=== PATIENT | female | born 1975 | race Caucasian/White ===

== ENCOUNTER → 2016-11-24 | Outpatient (CLI) | payer BC ==
[~2016-11-24] MED LIST: LRT5 PO; PREN0.12 PO
== END | disposition home or self-care (01) ==
LOC: C.FOODA 13:31
PROVIDERS: ATTEND Family Medicine
DX: E66.8 Other obesity (principal); Z68.32 Body mass index [BMI] 32.0-32.9, adult

== ENCOUNTER → 2017-02-24 | Outpatient (CLI) | payer BC | END | disposition home or self-care (01) | LOC: C.LAB 09:43 | PROVIDERS: ATTEND Obstetrics & Gynecology | DX: O09.511 Supervision of elderly primigravida, first trimester (principal); Z3A.00 Weeks of gestation of pregnancy not specified ==

== ENCOUNTER → 2017-02-27 | Outpatient (CLI) | payer BC | END | disposition home or self-care (01) | LOC: C.LAB 08:25 | PROVIDERS: ATTEND Obstetrics & Gynecology | DX: O09.511 Supervision of elderly primigravida, first trimester (principal) ==

== ENCOUNTER → 2017-02-28 | Outpatient (CLI) | payer BC ==
[2017-03-06 11:51] LABS: CHLAMYDIA TRACH RNA*** NOT DETECTED (NOT DETECTED); GC (NEIS GONORRHOEAE)RNA** NOT DETECTED (NOT DETECTED)
== END | disposition home or self-care (01) ==
LOC: C.LABSPEC 15:23
PROVIDERS: ATTEND Obstetrics & Gynecology
DX: O09.511 Supervision of elderly primigravida, first trimester (principal)

== ENCOUNTER → 2017-02-28 | Outpatient (CLI) | payer BC | END | disposition home or self-care (01) | LOC: C.PAPS 16:09 | PROVIDERS: ATTEND Obstetrics & Gynecology | DX: O09.511 Supervision of elderly primigravida, first trimester (principal); Z3A.00 Weeks of gestation of pregnancy not specified ==

== ENCOUNTER 2017-04-12 07:01 | Emergency (ER) | payer BC ==
[~2017-04-12] VITALS: Ht 177.8 cm; Wt 99.9 kg
[~2017-04-12 07:01] MED LIST changes: -PREN0.12 PO
[2017-04-12 07:12] VITALS: Ht 177.8 cm; Wt 99.9 kg
[2017-04-12] MEDS ORDERED: SODIUM CHLORIDE 0.9% 1000ML 1,000 ML IV STA (07:31)
--- NOTE | 2017-04-12 07:39 | EMERGENCY ROOM VISIT NOTE ---
History First contact with patient: 07:18 Chief Complaint: ED VAG BLEEDING Stated Complaint: BLEEDING 11WKS History of Present Illness The patient is a 42 year old female who presents to the Emergency Room with complaints of vaginal bleeding. The patient is a female, 11.5 weeks gestation and was told she is having twins. She sees Dr. Nunes. Her last ultrasound was at 8 weeks. Given her age and that this is her first of twin gestation, she is being referred to [facility] and has an appointment on the of this month. She has an appointment with [facility] on Monday. The patient states that this morning around 5 AM she woke with vaginal bleeding. She states she had mild cramping which she rates a 2/10. She denies any other illness. She denies any fevers, chills, earache, sore throat. She denies any cough or trouble breathing. She denies any pain in her chest. She denies any urinary symptoms. Review of Systems A 10 system review of systems was completed with positives and pertinent negatives listed in the HPI. Past Medical/Surgical History Patient denies Social History Smoking Status: Former Smoker Marital Status: Housing Status: lives with family Occupation Status: employed Current/Historical Medications Scheduled Vit W/ Ferrous Fumara (), 1 TAB PO DAILY Allergies Coded Allergies: No Known Allergies (Unverified , 04/12/17) Physical Exam Vital Signs Date Time Temp Pulse Resp B/P (MAP) Pulse Ox O2 Delivery O2 Flow Rate FiO2 04/12/17 11:11 37.0 79 16 132/79 98 04/12/17 11:09 36.9 81 16 134/74 98 04/12/17 11:06 81 16 134/74 98 Room Air 04/12/17 10:02 70 18 135/92 100 Room Air 04/12/17 08:24 64 18 140/87 100 Room Air 04/12/17 07:12 36.6 88 20 135/87 99 Room Air Physical Exam VITALS: Vitals are noted on the nurse's note and reviewed by myself. Vital signs stable. The patient is afebrile. GENERAL: This is a 42-year-old female, in no acute distress, nondiaphoretic, well-developed well-nourished. SKIN: The skin was without rashes, erythema, edema, or bruising. There is no tenting of the skin. Capillary reflex less than 2 seconds. HEAD: Normocephalic atraumatic. EARS: External ears normal in appearance. EYES: Pupils equal round and reactive to light and accommodation. Conjunctivae without injection, sclerae without icterus. Extraocular movements intact. NOSE: Patent, turbinates without inflammation or discharge. MOUTH: Mucous membranes moist. Tonsils are not enlarged. Pharynx without erythema or exudate. Uvula midline. Airway patent. Tongue does not deviate. NECK: Supple without nuchal rigidity. No lymphadenopathy. No thyromegaly. Cervical spine is nontender. No JVD. HEART: Regular rate and rhythm without murmurs gallops or rubs. LUNGS: Clear to auscultation bilaterally without wheezes, rales or rhonchi. No retractions or accessory muscle use. ABDOMEN: Positive bowel sounds x 4. Soft, nontender, without masses or organomegaly. : He is to genitalia is normal in appearance. The cervix is closed. There is scant blood noted in the vaginal canal. There is no cervicitis. There is no cervical motion tenderness. There are no obvious adnexal masses. MUSCULOSKELETAL: No muscle atrophy, erythema, or edema noted. Full range of motion in all extremities.Normal gait. Strength 5/5 throughout. NEURO: Patient was alert and oriented to person place and time. No focal neurological deficits. Medical Decision & Procedures ER Provider Diagnostic Interpretation: <14 WKS TRANSABD ADD CLINICAL HISTORY: 11.5week gestation, twins, vaginal bleeding COMPARISON STUDY: None. FINDINGS: Transabdominal and transvaginal scanning of the pelvis was performed. The cervix measures 4 cm in length. There is trace fluid within the cervical canal. However, the cervix appears closed. There is evidence for a twin with baby A on the right maternal side measuring a crown-rump length of 4.35 cm consistent with an 11 week and 1 day fetus. Baby A demonstrates a heart rate of 155 bpm. Baby B demonstrates a crown-rump length of 4.49 cm consistent with an 11 week and 2 day intrauterine gestation with a heart rate of 166 bpm. There are 2 small hypoechoic areas between the gestational sac of baby A and the cervix which measure 1.8 and 1.7 cm in size. These are consistent with small subchorionic hematomas. IMPRESSION: Viable twin of approximately 11 week and 2 days. There are 2 small hypoechoic areas between the gestational sac of baby A and the cervix consistent with small subchorionic hematomas. These do not result significant mass effect at this time. Laboratory Results 04/12/17 07:45 Red Blood Count 4.82, Mean Corpuscular Volume 87.1, Mean Corpuscular Hemoglobin 29.5, Mean Corpuscular Hemoglobin Concent 33.8, Mean Platelet Volume 10.8, Neutrophils (%) (Auto) 73.2, Lymphocytes (%) (Auto) 20.4, Monocytes (%) (Auto) 5.0, Eosinophils (%) (Auto) 0.9, Basophils (%) (Auto) 0.2, Neutrophils # (Auto) 7.09, Lymphocytes # (Auto) 1.97, Monocytes # (Auto) 0.48, Eosinophils # (Auto) 0.09, Basophils # (Auto) 0.02 04/12/17 07:45 Test 04/12/17 07:41 04/12/17 07:45 Urine Color YELLOW Urine Appearance CLEAR (CLEAR) Urine pH 6.5 (4.5-7.5) Urine Specific [place] 1.012 (1.000-1.030) Urine Protein NEG (NEG) Urine Glucose (UA) NEG (NEG) Urine Ketones NEG (NEG) Urine Occult Blood 2+ (NEG) Urine Nitrite NEG (NEG) Urine Bilirubin NEG (NEG) Urine Urobilinogen NEG (NEG) Urine Leukocyte Esterase NEG (NEG) Urine WBC (Auto) 1-5 /hpf (0-5) Urine RBC (Auto) 0-4 /hpf (0-4) Urine Hyaline Casts (Auto) 0 /lpf (0-5) Urine Epithelial Cells (Auto) 10-20 /lpf (0-5) Urine Bacteria (Auto) NEG (NEG) Urine Mucus PRESENT (NONE PRSENT) White Blood Count 9.68 K/uL (4.8-10.8) Red Blood Count 4.82 M/uL (4.2-5.4) Hemoglobin 14.2 g/dL (12.0-16.0) Hematocrit 42.0 % (37-47) Mean Corpuscular Volume 87.1 fL (80-100) Mean Corpuscular Hemoglobin 29.5 pg (25-34) Mean Corpuscular Hemoglobin Concent 33.8 g/dl (32-36) Platelet Count 257 K/uL (130-400) Mean Platelet Volume 10.8 fL (7.4-10.4) Neutrophils (%) (Auto) 73.2 % Lymphocytes (%) (Auto) 20.4 % Monocytes (%) (Auto) 5.0 % Eosinophils (%) (Auto) 0.9 % Basophils (%) (Auto) 0.2 % Neutrophils # (Auto) 7.09 K/uL (1.4-6.5) Lymphocytes # (Auto) 1.97 K/uL (1.2-3.4) Monocytes # (Auto) 0.48 K/uL (0.11-0.59) Eosinophils # (Auto) 0.09 K/uL (0-0.5) Basophils # (Auto) 0.02 K/uL (0-0.2) RDW Standard Deviation 42.1 fL (36.4-46.3) RDW Coefficient of Variation 13.1 % (11.5-14.5) Immature Granulocyte % (Auto) 0.3 % Immature Granulocyte # (Auto) 0.03 K/uL (0.00-0.02) Anion Gap 10.0 mmol/L (3-11) Est Creatinine Clear Calc Drug Dose 142.8 ml/min Estimated GFR () 127.4 Estimated GFR (Non- 110.0 BUN/Creatinine Ratio 9.9 (10-20) Calcium Level 8.2 mg/dl (8.5-10.1) Total Bilirubin 0.4 mg/dl (0.2-1) Aspartate Amino Transf (AST/SGOT) 14 U/L (15-37) Alanine Aminotransferase (ALT/SGPT) 21 U/L (12-78) Alkaline Phosphatase 73 U/L (45-117) Total Protein 6.7 gm/dl (6.4-8.2) Albumin 2.9 gm/dl (3.4-5.0) Globulin 3.8 gm/dl (2.5-4.0) Albumin/Globulin Ratio 0.8 (0.9-2) Human Chorionic Gonadotropin, Quant [id number] mIU/mL Medications Administered Medications (Trade) Dose Ordered Sig/Mayco Route Start Time Stop Time Status Last Admin Dose Admin Sodium Chloride 1,000 ml @ 999 mls/hr Q1H1M STAT IV 04/12/17 07:31 04/12/17 08:31 DC 04/12/17 07:57 999 MLS/HR ED Course The patient was seen and examined. Previous visits were reviewed. The patient does not have a fever or leukocytosis. She is not anemic. She does not have any significant electrolyte abnormalities. Quantitative hCG is 107,892. Urinalysis reveals hematuria but this is likely contamination from the vaginal bleeding. Ultrasound was obtained as above. The patient was found to have 11.5 week gestation of viable twins. There are 2 small subchorionic hematomas. The patient is Rh- and was given RhoGAM in the emergency department The case was discussed with Dr. Ferrell. He recommends RhoGAM administration and follow-up in the office. The patient was advised of the above findings. She is encouraged to return to the emergency Department with any worsening bleeding, pain, fevers or generalized worsening symptoms. Otherwise, she should follow-up with [facility]. The case was discussed with Dr. Hughes who agrees with the assessment and treatment plan Medical Decision The differential diagnosis includes miscarriage, threatened miscarriage, ovarian cyst, subchorionic hemorrhage, among others Impression Primary Impression: Subchorionic hematoma Additional Impressions: Vaginal bleeding in Need for rhogam due to Rh negative mother Departure Information Dispostion Home / Self-Care Condition GOOD Referrals No Doctor, Assigned (PCP) Kwame Ferrell M.D. Patient Instructions Bleeding Early Preg, My [facility] Papirus, Rh0 [D] Immune Globulin injection Additional Instructions No lifting more than 15 pounds Vaginal rest Return with worsening bleeding or cramping Otherwise, follow up with [facility] next week as scheduled Problem Qualifiers Primary Impression: Subchorionic hematoma Fetus number: fetus 1 of multiple gestation Additional Impressions:
[2017-04-12 07:55] LABS: BASO % 0.2 %; BASO ABS # 0.02 K/uL (0-0.2); COMPLETE YES; EOS % 0.9 %; IG% 0.3 %; LYMPH % 20.4 %; LYMPH ABS # 1.97 K/uL (1.2-3.4); MEAN CELL VOLUME 87.1 fL (80-100); MEAN CORPUSCULAR HEMOGLOBIN 29.5 pg (25-34); MEAN CORPUSCULAR HGB CONC 33.8 g/dl (32-36); MEAN PLATELET VOLUME 10.8 fL (7.4-10.4); NEUT % 73.2 %; PLATELET COUNT 257 K/uL (130-400); RED BLOOD COUNT 4.82 M/uL (4.2-5.4); WHITE BLOOD COUNT 9.68 K/uL (4.8-10.8)
[2017-04-12 07:56] LABS: URINE APPEARANCE CLEAR (CLEAR); URINE BILIRUBIN NEG (NEG); URINE COLOR YELLOW; URINE NITRITE NEG (NEG); URINE PH 6.5 (4.5-7.5); URINE SPECIFIC GRAVITY 1.012 (1.000-1.030); UROBILINOGEN NEG (NEG); ZZUR CULT IF INDIC CLEAN CATCH NO
[2017-04-12 07:57] LABS: MANUAL MICROSCOPIC REQUIRED? NO; REVIEW REQ? YES
[2017-04-12 08:08] LABS: URINE MUCUS PRESENT (NONE PRSENT)
[2017-04-12 08:16] LABS: CALCIUM 8.2 mg/dl (8.5-10.1)
[2017-04-12 08:17] LABS: BUN/CREATININE RATIO 9.9 (10-20); CREATININE 0.67 mg/dl (0.60-1.20); POTASSIUM 3.8 mmol/L (3.5-5.1)
[2017-04-12 08:20] LABS: ALB/GLOB RATIO 0.8 (0.9-2)
--- NOTE | 2017-04-12 10:04 | DIAGNOSTIC IMAGING REPORT ---
<14 WKS TRANSABD ADD CLINICAL HISTORY: 11.5week gestation, twins, vaginal bleeding COMPARISON STUDY: None. FINDINGS: Transabdominal and transvaginal scanning of the pelvis was performed. The cervix measures 4 cm in length. There is trace fluid within the cervical canal. However, the cervix appears closed. There is evidence for a twin with baby A on the right maternal side measuring a crown-rump length of 4.35 cm consistent with an 11 week and 1 day fetus. Baby A demonstrates a heart rate of 155 bpm. Baby B demonstrates a crown-rump length of 4.49 cm consistent with an 11 week and 2 day intrauterine gestation with a heart rate of 166 bpm. There are 2 small hypoechoic areas between the gestational sac of baby A and the cervix which measure 1.8 and 1.7 cm in size. These are consistent with small subchorionic hematomas. IMPRESSION: Viable twin of approximately 11 week and 2 days. There are 2 small hypoechoic areas between the gestational sac of baby A and the cervix consistent with small subchorionic hematomas. These do not result significant mass effect at this time. Electronically signed by: Matthew Tracy M.D. 04/12/2017 10:02 AM Dictated Date/Time: 04/12/2017 9:55 AM
[2017-04-12 11:06] VITALS: O2SAT 98
[2017-04-12 11:09] VITALS: BP 134/74; PULSE 81; TEMP 36.9; O2SAT 98
[2017-04-12 11:11] VITALS: BP 132/79; PULSE 79; TEMP 37; O2SAT 98
[2017-04-12] MEDS ORDERED: PREN0.12 PO (11:23)
== END 2017-04-12 11:33 | disposition home or self-care (01) ==
LOC: C.EDB 07:03
DX: O20.8 Other hemorrhage in early pregnancy (principal); Z31.82 Encounter for Rh incompatibility status; Z87.891 Personal history of nicotine dependence; Z3A.11 11 weeks gestation of pregnancy; O30.001 Twin pregnancy, unspecified number of placenta and unspecified number of amniotic sacs, first trimester

== ENCOUNTER → 2017-05-16 | Outpatient (CLI) | payer BC ==
[~2017-05-16] MED LIST changes: -LRT5 PO; +PREN0.12 PO
[2017-05-16 09:52] LABS: PATIENT HEIGHT 177.8 cm
[2017-05-16 10:11] LABS: BASO % 0.1 %; BASO ABS # 0.01 K/uL (0-0.2); COMPLETE YES; EOS % 0.5 %; IG% 0.3 %; LYMPH % 15.5 %; LYMPH ABS # 1.79 K/uL (1.2-3.4); MEAN CELL VOLUME 84.3 fL (80-100); MEAN CORPUSCULAR HEMOGLOBIN 27.7 pg (25-34); MEAN CORPUSCULAR HGB CONC 32.9 g/dl (32-36); MEAN PLATELET VOLUME 10.6 fL (7.4-10.4); NEUT % 80.6 %; PLATELET COUNT 280 K/uL (130-400); RED BLOOD COUNT 4.51 M/uL (4.2-5.4); WHITE BLOOD COUNT 11.54 K/uL (4.8-10.8)
[2017-05-16 10:47] LABS: GTGD 50 Grams
[2017-05-16 12:49] LABS: ALKALINE PHOSPHATASE 79 U/L (45-117); ALT/SGPT 18 U/L (12-78); AST/SGOT 10 U/L (15-37)
[2017-05-16 13:00] LABS: URINE TOTAL PROTEIN 6.9 mg/dl (0-11.9)
[2017-05-16 13:10] LABS: URINE TOTAL PROTEIN CALC 203.6 mg/24 hr (0-149.1)
[2017-05-16 13:24] LABS: CREATININE 0.66 mg/dl (0.6-1.2)
== END | disposition home or self-care (01) ==
LOC: C.LAB 08:01
PROVIDERS: ATTEND Obstetrics & Gynecology
DX: O09.521 Supervision of elderly multigravida, first trimester (principal); Z3A.00 Weeks of gestation of pregnancy not specified

== ENCOUNTER → 2017-08-10 | Outpatient (CLI) | payer BC | END | disposition home or self-care (01) | LOC: C.LAB 17:08 | PROVIDERS: ATTEND Obstetrics & Gynecology | DX: O30.009 Twin pregnancy, unspecified number of placenta and unspecified number of amniotic sacs, unspecified trimester (principal); Z3A.00 Weeks of gestation of pregnancy not specified ==

== ENCOUNTER → 2017-08-11 | Day surgery (SDC) | payer BC ==
[~2017-08-11] VITALS: Ht 177.8 cm; Wt 102.8 kg
[2017-08-11 08:08] VITALS: BP 132/66; PULSE 83; TEMP 36.9; O2SAT 97; Ht 177.8 cm; Wt 102.8 kg
[2017-08-11 09:05] VITALS: BP 132/66; PULSE 90; TEMP 36.9; O2SAT 97
== END | disposition home or self-care (01) ==
LOC: C.MTU 07:32
PROVIDERS: ATTEND Obstetrics & Gynecology
DX: Z31.82 Encounter for Rh incompatibility status (principal); O36.0190 Maternal care for anti-D [Rh] antibodies, unspecified trimester, not applicable or unspecified

== ENCOUNTER 2017-09-08 09:02 | Outpatient (CLI) | payer BC ==
[2017-09-08 10:45] LABS: HEMATOCRIT 39.1 % (37-47); MEAN CELL VOLUME 84.8 fL (80-100); MEAN CORPUSCULAR HEMOGLOBIN 27.3 pg (25-34); MEAN CORPUSCULAR HGB CONC 32.2 g/dl (32-36); MEAN PLATELET VOLUME 12.2 fL (7.4-10.4); PLATELET COUNT 216 K/uL (130-400); RED BLOOD COUNT 4.61 M/uL (4.2-5.4); WHITE BLOOD COUNT 16.85 K/uL (4.8-10.8)
[2017-09-08 11:09] LABS: ALT/SGPT 18 U/L (12-78); AST/SGOT 15 U/L (15-37); BLOOD UREA NITROGEN 9 mg/dl (7-18); BUN/CREATININE RATIO 14.5 (10-20); CALCIUM 8.4 mg/dl (8.5-10.1); CARBON DIOXIDE 22 mmol/L (21-32); CHLORIDE 109 mmol/L (98-107); CREATININE 0.62 mg/dl (0.60-1.20); GLUCOSE 68 mg/dl (70-99); POTASSIUM 3.9 mmol/L (3.5-5.1); SODIUM 140 mmol/L (136-145)
[2017-09-08 11:11] LABS: ALB/GLOB RATIO 0.6 (0.9-2); ALKALINE PHOSPHATASE 161 U/L (45-117)
--- NOTE | 2017-09-08 12:42 | HISTORY & PHYSICAL EXAMINATION ---
DATE OF ADMISSION: 09/08/2017 CHIEF COMPLAINT: Twin pregnancies, sustained elevated blood pressure, intrauterine pregnancies at 32 weeks 3 days. HISTORY OF PRESENT ILLNESS: The patient is a 42-year-old 1, para 0. Her due date is 10/31/2017. She was early in her course seen at [facility]. She had a 13-week ultrasound and 20-week ultrasound. She has been on low dose aspirin since 13 weeks, been followed in our office. I have seen her weekly. She has had weekly ultrasounds with growth being measured every 3 weeks, up until this point, she has grown appropriately. Infants are in lower percentiles but fluid is good and growth is symmetrical. About a week ago, she started to develop some elevation in blood pressure. We put her on some restricted activity and did her first NST today at 32 weeks 3 days. She had a reactive NST, both infants; however, her blood pressures remained elevated, at time she had systolics of 100 and at times they were down to about 150/90. Her baseline blood pressures much lower. She was down about 130/70 and at times even 120/60. PAST MEDICAL HISTORY: She has had no previous surgery. No medical diseases. MEDICATIONS: Her only medications are vitamins and aspirin. ALLERGIES: She has no known drug allergies. SOCIAL HISTORY: No smoking. No alcohol intake. She is unemployed. FAMILY HISTORY: Mom 77 had breast cancer 20 years ago. Father 78 in good health. She has no brothers or sisters. REVIEW OF SYSTEMS: HEAD: No symptoms of frequent severe headaches, ear infections, nosebleed, sore throats, kidney or bladder infections. PHYSICAL EXAMINATION: GENERAL: Well-developed, well-nourished 42-year-old white female; alert, oriented x3 and cooperative in no acute distress, appears stated age. EYES: Conjunctivae are pink. Sclerae white. No evidence of jaundice. EARS: Had normal light reflex bilaterally. NOSE: Had normal mucosa. Septum is midline. There were no polyps. THROAT: No erythema or evidence of infection. Teeth are in good state of repair. HEAD: Normocephalic, normal distribution of hair. NECK: Supple. Trachea midline. Thyroid is not enlarged. There is no adenopathy appreciated. Both carotids are of good intensity. CHEST: Clear to auscultation and percussion. No wheezes, rales or rhonchi appreciated. ABDOMEN AND PELVIS: Fundal size was well over 40 cm. Cervix was closed. There was no CVA tenderness, no abdominal tenderness. EXTREMITIES: Reflexes were normal. No calf tenderness. Mild amount of ankle swelling. IMPRESSIONS OF THIS CASE: Twin intrauterine , uterine anomaly and toxemia.
== END 2017-09-08 13:43 | disposition short-term general hospital (02) ==
LOC: C.OPB 09:02 → C.LD 09:03 → C.OPB 13:43
PROVIDERS: ATTEND Obstetrics & Gynecology
DX: O30.003 Twin pregnancy, unspecified number of placenta and unspecified number of amniotic sacs, third trimester (principal); O14.93 Unspecified pre-eclampsia, third trimester; O34.03 Maternal care for unspecified congenital malformation of uterus, third trimester; O09.513 Supervision of elderly primigravida, third trimester; Z3A.32 32 weeks gestation of pregnancy; Z80.3 Family history of malignant neoplasm of breast

== ENCOUNTER 2017-09-15 09:47 | Outpatient (CLI) | payer BC | END 2017-09-15 11:00 | disposition home or self-care (01) | LOC: C.LD 09:47 → C.OPB 09:47 | PROVIDERS: ATTEND Obstetrics & Gynecology | DX: O30.009 Twin pregnancy, unspecified number of placenta and unspecified number of amniotic sacs, unspecified trimester (principal); Z3A.00 Weeks of gestation of pregnancy not specified ==

== ENCOUNTER → 2017-11-10 | Outpatient (CLI) | payer BC | END | disposition home or self-care (01) | LOC: C.PAPS 16:07 | PROVIDERS: ATTEND Obstetrics & Gynecology | DX: Z39.2 Encounter for routine postpartum follow-up (principal) ==